=== PATIENT | male | born 1960 | race Caucasian/White ===

== ENCOUNTER 2018-09-18 06:55 | Emergency (ER) | payer OTHER ==
[~2018-09-18] VITALS: Ht 165.1 cm; Wt 86.4 kg
[2018-09-18 07:03] VITALS: Ht 165.1 cm; Wt 86.4 kg
[2018-09-18] MEDS ORDERED: IBUP-1542 PO (09:40)
[2018-09-18 10:31] VITALS: BP 157/88; PULSE 76; RESP 19
--- NOTE | 2018-09-18 13:33 | ERD ---
ER Documentation Chief Complaint Chief Complaint BILATERAL ARM PAIN X 3 MONTHS HPI 58-year-old male patient with no significant past medical history presents to ED complaining of bilateral arm pain and bilateral hand paresthesias. Patient reports that this has been going for the last 3 months. States that he also has some left heel pain. Describes the pain as achy and rates it an 8 out of 10. Reports he has not taking any medication. 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 States that he is constantly bending and extending his bilateral arms. States that he is constantly on his feet. Denies any chest pain, shortness of breath, nausea, vomiting, diarrhea, fever, neck stiffness. Denies any trauma or injuries. ROS All systems reviewed and are negative except as per history of present illness. Medications Home Meds Active Scripts Ibuprofen* (Motrin*) 600 Mg Tab, 600 MG PO Q6, #30 TAB Prov:ESTEFANIA JACOBS PA-C 09/18/18 Allergies Allergies: Coded Allergies: No Known Allergy (Unverified , 09/18/18) PMhx/Soc Medical and Surgical Hx: pt denies Medical Hx History of Surgery: Yes (APPENDECTOMY) Hx Alcohol Use: No Hx Substance Use: No Hx Tobacco Use: No Smoking Status: Never smoker FmHx Family History: No diabetes, No coronary disease Physical Exam Vitals Vital Signs Date Temp Pulse Resp B/P (MAP) Pulse Ox O2 O2 Flow FiO2 Time Delivery Rate 09/18/18 98.2 76 19 157/88 100 Room Air 10:31 (111) 09/18/18 97.1 64 16 170/90 97 07:03 (116) Physical Exam Const: Prn-igi-terqlpcmi, well-nourished. In no acute distress. Head: Atraumatic, normocephalic Eyes: Normal Conjunctiva without injection. No purulent discharge. PERRL. EOMI ENT: Normal external ear. Ear canal without erythema. Tympanic membrane pearly perry without effusion or bulging. Nasal canal clear with normal turbinates. Moist oropharynx without tonsillar exudates. Non-erythematous pharynx. Uvula midline. No drooling. No trismus. Neck: Full range of motion. No meningismus. No cervical lymphadenopathy. Resp: Clear to auscultation bilaterally. No wheezing, rhonchi, rales, or crackles. No accessory muscle use. No retractions. Cardio: Regular rate and rhythm. No murmurs, rubs or gallops. Abd: Soft, non tender, non distended. Normal bowel sounds. No palpable masses. No rebound tenderness. No guarding. Skin: No petechiae or rashes Back: No midline tenderness. No CVA tenderness. Ext: No cyanosis, or edema. Full range of motion of the bilateral upper extremities with supination, pronation, flexion, extension, external and internal deviation. No deformities. Distal pulses intact. Cap Refill less 2 seconds. Neur: Awake and alert. Psych: Normal Mood and Affect Procedures/MDM 58-year-old male patient with no significant past medical history presents to ED complaining of bilateral arm pain and hand paresthesias started 3 months ago as well as left heel pain that started 1 month ago. Patient's blood pressure is 170/90. Blood Pressure Assessment: Patient's blood pressure was elevated (>120/80) but appears stable without evidence of hypertension emergency or urgency. The patient was counseled about the risks of hypertension and urged to pursue outpatient monitoring and therapy within a week with their primary care physician. The patient's for imaging at this time. Patient is ambulating without any difficulty. Patient has full range of motion of the bilateral extremities with flexion, extension, supination, pronation, internal and external deviation. Patient is placed in a bilateral wrist Velcro splint. Splint Assessment: Neurovascularly intact pre and post splint placement with good fit. Differentials include carpal tunnel, cubital tunnel syndrome, bone spur of the left heel. Patient's extremity symptoms have stabilized while they have been evaluated in the department and are appropriate for outpatient follow up. No evidence of fractures, dislocations, compartment syndrome, neurologic injury, vascular injury, open joint, open fracture, tendon laceration, septic arthritis, osteomyelitis, DVT, foreign body, or other emergent conditions. Diagnosis: Numbness and tingling of the hand, patient of the left heel, bilateral elbow joint pain Discharge medications: Ibuprofen Follow up with primary care physician in 1-2 days. Instructed patient to return to the ED sooner for any worsening symptoms. Patient's questions were answered. Patient is hemodynamically stable. Patient understood and agreed with discharge plan. Patient discharged stable. Disclaimer: Inadvertent spelling and grammatical errors are likely due to EHR/dictation software use and do not reflect on the overall quality of patient care. Also, please note that the electronic time recorded on this note does not necessarily reflect the actual time of the patient encounter. Departure Diagnosis: Primary Impression: Numbness and tingling of hand Additional Impressions: Pain of left heel Bilateral elbow joint pain Condition: Stable Patient Instructions: What Is Carpal Tunnel Syndrome (CTS)?, Alcohol Addiction, High Blood Pressure (Hypertension), Heel Spur, Paraesthesias Referrals: [facility] YOU HAVE RECEIVED A MEDICAL SCREENING EXAM AND THE RESULTS INDICATE THAT YOU DO NOT HAVE A CONDITION THAT REQUIRES URGENT TREATMENT IN THE EMERGENCY DEPARTMENT. FURTHER EVALUATION AND TREATMENT OF YOUR CONDITION CAN WAIT UNTIL YOU ARE SEEN IN YOUR DOCTORS OFFICE WITHIN THE NEXT 1-2 DAYS. IT IS YOUR RESPONSIBILITY TO MAKE AN APPOINTMENT FOR FOLOW-UP CARE. IF YOU HAVE A PRIMARY DOCTOR --you should call your primary doctor and schedule an appointment IF YOU DO NOT HAVE A PRIMARY DOCTOR YOU CAN CALL OUR PHYSICIAN REFERRAL HOTLINE AT IF YOU CAN NOT AFFORD TO SEE A PHYSICIAN YOU CAN CHOSE FROM THE FOLLOWING [facility] [address] [facility]. [facility] [address] [facility] [address] [facility] [facility] [address] [facility] [facility] [address] [facility]. [facility]. [address] [facility]. [facility] YOU HAVE RECEIVED A MEDICAL SCREENING EXAM AND THE RESULTS INDICATE THAT YOU DO NOT HAVE A CONDITION THAT REQUIRES URGENT TREATMENT IN THE EMERGENCY DEPARTMENT. FURTHER EVALUATION AND TREATMENT OF YOUR CONDITION CAN WAIT UNTIL YOU ARE SEEN IN YOUR DOCTORS OFFICE WITHIN THE NEXT 1-2 DAYS. IT IS YOUR RESPONSIBILITY TO MAKE AN APPOINTMENT FOR FOLOW-UP CARE. IF YOU HAVE A PRIMARY DOCTOR --you should call your primary doctor and schedule and appointment IF YOU DO NOT HAVE A PRIMARY DOCTOR YOU CAN CALL OUR PHYSICIAN REFERRAL HOTLINE AT . IF YOU CAN NOT AFFORD TO SEE A PHYSICIAN YOU CAN CHOSE FROM THE FOLLOWING [facility] INSTITUTIONS: [facility] [address] [place] [address] [facility] [address] [place] [address] [facility] + [facility] [address] [place] [address] [facility] Urgent Care 7 a.m.- 11 p.m. Every Day of the Week NO APPOINTMENT OR AUTHORIZATION NEEDED [facility] Hours: Mon-Thu 9:00 AM - 5:00 PM Additional Instructions: Llame al doctor MAANA y ace dottie RICKY PARA DENTRO DE 2-3 DÍAZ para obtener dottie remisin para cruz un podlogo .Dgale a la secretaria que nosotros le instruimos hacer esta ricky.Avise o llame si louise condicin se empeora antes de la ricky. Regresa aqui si peor o no mejor. ESTEFANIA JACOBS PA-C Sep 18, 2018 13:33
== END 2018-09-18 10:32 | disposition home or self-care (01) ==
LOC: FTE 06:55
DX: R20.2 Paresthesia of skin (principal); R20.0 Anesthesia of skin; M79.672 Pain in left foot; M25.521 Pain in right elbow; M25.522 Pain in left elbow
CPT/HCPCS: 29515; Z7502; Z7610